=== PATIENT | female | born 1965 | race Caucasian/White ===

== ENCOUNTER → 2017-12-21 12:55 | Outpatient (CLI) | payer BC, SELFPAY ==
--- NOTE | 2017-12-21 | DI.MG.S_ITS ---
UNILATERAL RIGHT DIGITAL DIAGNOSTIC MAMMOGRAM 3D/2D SHORT-TERM FOLLOW-UP: 12/21/2017 CLINICAL: Patient returns for a 6 month follow up of the right breast. Comparison is made to exams dated: 06/15/2017 mammogram, 05/30/2017 mammogram, and 03/03/2016 mammogram - [facility]. The tissue of the right breast is extremely dense, which lowers the sensitivity of mammography. There is a stable benign oval equal density asymmetry with an indistinct margin in the right breast at 12 o'clock anterior depth. No other significant masses or calcifications are seen in the breast. IMPRESSION: BENIGN There is no mammographic evidence of malignancy. Return to annual mammogram screening schedule is recommended. This exam was interpreted at Station ID: [id number]. NOTE: For mammograms, a report in lay terms will be sent to the patient. Approximately 15% of breast malignancies will not be visualized mammographically. In the management of a palpable breast mass, a negative mammogram must not discourage biopsy of a clinically suspicious lesion. Electronically Signed By: Sang alvarez/celeste:12/21/2017 13:52:36 letter sent: Normal Exam ACR BI-RADS Category 2: Benign Finding(s) 3342F
== END ==
PROVIDERS: Family Provider Family Medicine; PCP Family Medicine; Visit Provider Family Medicine
DX: R92.8 Other abnormal and inconclusive findings on diagnostic imaging of breast (principal)
CPT/HCPCS: 77065; G0279

== ENCOUNTER → 2019-07-23 11:29 | Outpatient (CLI) | payer BC, SELFPAY ==
--- NOTE | 2019-07-23 | DI.MG.S_ITS ---
BILATERAL DIGITAL SCREENING MAMMOGRAM 3D/2D WITH CAD: 07/23/2019 CLINICAL: Routine screening. Comparison is made to exams dated: 12/21/2017 mammogram, 06/15/2017 mammogram, 05/30/2017 mammogram, and 03/03/2016 mammogram - [facility]. The tissue of both breasts is heterogeneously dense. This may lower the sensitivity of mammography. Current study was also evaluated with a Computer Aided Detection (CAD) system. No significant masses, calcifications, or other findings are seen in either breast. There has been no significant interval change. IMPRESSION: NEGATIVE There is no mammographic evidence of malignancy. A 1 year screening mammogram is recommended. This exam was interpreted at Station ID: [id number]. NOTE: For mammograms, a report in lay terms will be sent to the patient. Approximately 15% of breast malignancies will not be visualized mammographically. In the management of a palpable breast mass, a negative mammogram must not discourage biopsy of a clinically suspicious lesion. Electronically Signed By: Raymond rtejo/celeste:07/23/2019 16:59:43 letter sent: Normal Exam ACR BI-RADS Category 1: Negative 3341F
== END ==
PROVIDERS: Visit Provider Internal Medicine
DX: Z12.31 Encounter for screening mammogram for malignant neoplasm of breast (principal)
CPT/HCPCS: 77063; 77067

== ENCOUNTER → 2020-04-11 13:12 | Outpatient (CLI) | payer BC, SELFPAY | PROVIDERS: PCP Internal Medicine; Referring Provider Internal Medicine; Visit Provider Internal Medicine | DX: M81.0 Age-related osteoporosis without current pathological fracture (principal); Z78.0 Asymptomatic menopausal state; Z90.722 Acquired absence of ovaries, bilateral; Z82.62 Family history of osteoporosis | CPT/HCPCS: 77080 ==

== ENCOUNTER → 2021-12-25 11:23 | Outpatient (CLI) | payer BC, SELFPAY ==
--- NOTE | 2021-12-25 | DI.MG.S_ITS ---
BILATERAL DIGITAL SCREENING MAMMOGRAM 3D/2D WITH CAD: 12/25/2021 CLINICAL: Routine screening. Comparison is made to exams dated: 07/23/2019 mammogram, 05/30/2017 mammogram, 12/21/2017 mammogram, and 06/15/2017 [facility]. The tissue of both breasts is heterogeneously dense. This may lower the sensitivity of mammography. Current study was also evaluated with a Computer Aided Detection (CAD) system. No significant masses, calcifications, or other findings are seen in either breast. There has been no significant interval change. IMPRESSION: NEGATIVE There is no mammographic evidence of malignancy. A 1 year screening mammogram is recommended. Based on the Tyrer Cuzick model (a risk assessment model) the patient's lifetime risk is 12.8% and her 10 year risk is 3.8%. According to the ACR, ACS, and NCCN guidelines, an annual breast MRI exam along with mammogram is recommended if the patient's lifetime risk is 20% or greater. This exam was interpreted at Station ID: [id number]. NOTE: For mammograms, a report in lay terms will be sent to the patient. Approximately 15% of breast malignancies will not be visualized mammographically. In the management of a palpable breast mass, a negative mammogram must not discourage biopsy of a clinically suspicious lesion. Electronically Signed By: Luan Castrejon M.D., jr/celeste:12/25/2021 13:42:46 letter sent: Normal Exam ACR BI-RADS Category 1: Negative 3341F
== END ==
PROVIDERS: PCP Internal Medicine; Referring Provider Internal Medicine; Visit Provider Internal Medicine
DX: Z12.31 Encounter for screening mammogram for malignant neoplasm of breast (principal)
CPT/HCPCS: 77063; 77067

== ENCOUNTER → 2022-03-29 12:59 | Outpatient (CLI) | payer BC, SELFPAY ==
[2022-03-29 16:05] LABS: COVID19 -Nasal RAPID Negative (Negative)
== END ==
PROVIDERS: PCP Internal Medicine; Visit Provider Surgery
DX: Z01.812 Encounter for preprocedural laboratory examination (principal); Z20.822 Contact with and (suspected) exposure to COVID-19
CPT/HCPCS: 87635; C9803

== ENCOUNTER 2022-03-30 11:55 | Day surgery (SDC) | payer BC, SELFPAY ==
[2022-03-30 12:19] VITALS: BP 142/78; PULSE 79; RESP 18; TEMP 36.3; O2SAT 100; BMI 18.8
[2022-03-30] MEDS: LACTATED RINGERS 1,000 ML 200 ML IV (12:28)
--- NOTE | 2022-03-30 13:23 | P.HP_ITS ---
History of Present Illness History of Present Illness Date Patient Seen: 03/30/22 Time Patient Seen: 13:23 Chief complaint: ARC Narrative: The patient presents for colorectal screening. They have never had any previous examination for such. No personal or family history of colon cancer. On further history denies any recent gastrointestinal symptoms. No nausea, vomiting, abdominal pain, loss of appetite, unexplained weight loss, change in bowel habits, diarrhea, constipation, melena, hematochezia, or bright red blood per rectum. Patient History Medical History (Updated 03/30/22 @ 13:24 by Zhen Souza MD) Injury of bladder during surgery Nodule of neck Osteoporosis Surgical History (Updated 03/30/22 @ 13:24 by Zhen Souza MD) H/O exploratory laparotomy H/O: hysterectomy Family & Social History Social History: household members significant other Tobacco & Substance use: Smoking Status Never smoker alcohol intake current alcohol intake frequency 0-2 drinks per day Substance Use Type does not use Meds Home Medications and Allergies Home Medications Medication Instructions Recorded Confirmed Type Osteobiflex 1 cap PO DAILY 10/14/21 10/14/21 History krill oil 500 mg capsule 500 mg PO DAILY 10/14/21 10/14/21 History qfaxwkdlywzv-jmuvdqea-vlyizk 1 tab PO DAILY 10/14/21 10/14/21 History tablet (Multivitamin 50 Plus tablet) vit 1 cap PO DAILY 10/14/21 10/14/21 History C,E,zinc,Sd-xhiua-5-lutein-zeaxanthin 250 mg-2.5 mg-0.5 mg capsule estradiol 10 mcg vaginal tablet See Rx Instructions .Route 10/26/21 Rx (Vagifem) .COMPLEX #24 tabs sodium,potassium,mag sulfates 17.5 See Rx Instructions PO .COMPLEX 03/04/22 Rx gram-3.13 gram-1.6 gram oral soln #354 mL (Suprep Bowel Prep Kit) Allergies Allergy/AdvReac Type Severity Reaction Status Date / Time No Known Allergies Allergy Uncoded 03/30/22 12:16 Exam Vital Signs (past 8 hours): - 03/30/22 12:19 Temperature 97.4 F L Pulse Rate 79 Respiratory Rate 18 Blood Pressure 142/78 H Pulse Oximetry 100 Oxygen Delivery Method Room Air Oxygen Delivery Method Room Air Narrative Exam Narrative: General adult woman alert oriented no acute distress Abdomen soft midline scar Assessment & Plan Assessment and plan (1) Screening for colon cancer: Status: Acute Assessment & Plan narrative: The patient requires colorectal screening and colonoscopy is recommended. Te chnical details were discussed. Risks, benefits, alternatives explained. Risks including but not limited to myocardial infarction, aspiration, bleeding, pain, missed lesion, incomplete examination, need for further radiographic studies, colonic perforation, and need for major abdominal surgery were discussed. All questions were answered to their satisfaction, and they are in agreement with this plan. Time Spent With Patient Critical Care time: I spent a total of [] minutes of critical care time on this patient's care today; this time is exclusive of procedural time.
--- NOTE | 2022-03-30 13:29 | P.OP.COLON_ITS ---
Operative Date/Time/Diagnoses Date of procedure: 03/30/22 Time of procedure: 13:29 Pre-op diagnosis: Screening Post-op diagnosis: same Procedure & Clinicians Study performed: Colonoscopy Same procedure as scheduled: Yes Indications: Screening Surgeon: Zhen Souza Procedure Notes Procedure in detail: Medications: Conscious sedation using 10mg IV midazolam and 300mcg IV of fentanyl The history and physical was performed/updated and the patient is ASA class is 2. The procedure was discussed in detail with the patient. Potential risks complications including infection, bleeding, missed diagnosis, perforation, need for surgery, and were explained. Their questions were answered and informed consent was obtained. Patient was brought to the procedure room and placed standard monitoring equipment. The patient's vital signs were monitored continuously throughout the entire procedure. Prior to starting time-out was performed. The patient was placed in the left lateral recumbent position. Procedural sedation was admini stered. Examination began with a thorough inspection of the perianal area there was no evidence of fissures, fistulae, external hemorrhoids or cutaneous malignancy. The colonoscopy scope was then placed into the anal canal and was advanced to the cecum, which was identified by the ileocecal valve, the appendiceal orifice and the confluence of the taenia. The scope was then slowly withdrawn examining colon thoroughly in all directions, irrigating it of any residual stool. FINDINGS 1. No masses or polyps 2. Sigmoid-diverticulosis 3. Tortuous colon The patient tolerated the procedure well. They will be discharged once criteria are met. The prep was of fair quality. The withdrawl time was 7 minutes. The sedation time was 37 minutes. Specimen(s): none sent Impression: Normal colon Post-procedure Recommendations: Colonoscopy in 10 years and High fiber diet Plan for aftercare: Any further endoscopy should be performed with propofol Disposition: same day surgery
[2022-03-30] MEDS: fentaNYL 100 MCG/2 ML INJ 300 MCG IV (13:53)
[2022-03-30] MEDS: MIDAZOLAM 5 MG/5 ML VIAL 10 MG IV (13:53)
[2022-03-30 14:11] VITALS: BP 112/79; PULSE 75; RESP 18; TEMP 36.6; O2SAT 100
[2022-03-30 14:16] VITALS: BP 122/82; PULSE 73; RESP 16; O2SAT 100
[2022-03-30 14:21] VITALS: BP 114/85; PULSE 76; RESP 16; O2SAT 100
[2022-03-30 14:26] VITALS: BP 113/77; PULSE 72; RESP 16; TEMP 36.3; O2SAT 100
== END 2022-03-30 14:45 | disposition home or self-care (01) ==
PROVIDERS: PCP Internal Medicine; Referring Provider Surgery; Visit Provider Surgery
PROC: 0DJD8ZZ Inspection of Lower Intestinal Tract, Via Natural or Artificial Opening Endoscopic (ICD-10-PCS; CPT 45378; principal; 2022-03-30 13:30)
DX: Z12.11 Encounter for screening for malignant neoplasm of colon (principal); K57.30 Diverticulosis of large intestine without perforation or abscess without bleeding
CPT/HCPCS: 45378; 99152; 99153; J2250; J3010

== ENCOUNTER → 2022-05-06 14:34 | Outpatient (CLI) | payer BC, SELFPAY ==
[2022-05-06 15:23] LABS: Alanine Aminotransferase 26 IU/L (<35); Albumin 4.7 g/dL (3.5-5.0); Albumin Globulin Ratio 1.7 (1.0-2.8); Alkaline Phosphatase 60 U/L (38-126); Aspartate Aminotransferase 31 IU/L (14-36); BUN Creatinine Ratio 22.1 (6-22); Bilirubin Total 0.4 mg/dL (0.2-1.3); Blood Urea Nitrogen 15 mg/dL (7-17); Calcium 8.9 mg/dL (8.4-10.2); Carbon Dioxide 30 mmol/L (22-32); Chloride 104 mmol/L (98-107); Estimated Glomerular Filt Rate > 60 mL/min (>60); Globulin 2.8 g/dL (1.7-4.1); Glucose 102 mg/dL (70-100); HEMOLYSIS < 15 (0-50); Potassium 3.8 mmol/L (3.4-5.1); Sodium 139 mmol/L (137-145); Total Protein 7.5 g/dL (6.3-8.2)
== END ==
PROVIDERS: PCP Internal Medicine; Referring Provider Internal Medicine; Visit Provider Internal Medicine
DX: M81.0 Age-related osteoporosis without current pathological fracture (principal)
CPT/HCPCS: 36415; 80053; 82306

== ENCOUNTER → 2023-03-22 12:40 | Outpatient (CLI) | payer BC, SELFPAY ==
--- NOTE | 2023-03-22 | DI.MG.S_ITS ---
BILATERAL DIGITAL SCREENING MAMMOGRAM 3D/2D WITH CAD: 03/22/2023 CLINICAL: Routine screening. Comparison is made to exams dated: 12/25/2021 mammogram, 07/23/2019 mammogram, and 05/30/2017 mammogram - [facility]. Both breasts are heterogeneously dense, which may obscure small masses (category c / 51-75% glandular tissue). Current study was also evaluated with a Computer Aided Detection (CAD) system. No significant masses, calcifications, or other findings are seen in either breast. There has been no significant interval change. IMPRESSION: NEGATIVE There is no mammographic evidence of malignancy. A 1 year screening mammogram is recommended. Based on the Tyrer Cuzick model (a risk assessment model) the patient's lifetime risk is 12.8% and her 10 year risk is 4.0%. According to the ACR, ACS, and NCCN guidelines, an annual breast MRI exam along with mammogram is recommended if the patient's lifetime risk is 20% or greater. This exam was interpreted at Station ID: [id number]. NOTE: For mammograms, a report in lay terms will be sent to the patient. Approximately 15% of breast malignancies will not be visualized mammographically. In the management of a palpable breast mass, a negative mammogram must not discourage biopsy of a clinically suspicious lesion. Electronically Signed By: Brionna coles/celeste:03/22/2023 15:11:46 letter sent: Normal Exam ACR BI-RADS Category 1: Negative 3341F
== END ==
PROVIDERS: PCP Internal Medicine; Referring Provider Internal Medicine; Visit Provider Internal Medicine
DX: Z12.31 Encounter for screening mammogram for malignant neoplasm of breast (principal)
CPT/HCPCS: 77063; 77067

== ENCOUNTER → 2023-05-04 12:28 | Outpatient (CLI) | payer BC, SELFPAY ==
--- NOTE | 2023-05-04 12:29 | DI.RAD.S_ITS ---
Bone Density Report Name: MONTEZ ARAGON Age: 57 Sex: Female Ethnicity: White Date of : 1965 Indication: postmenopausal osteoporosis; monitoring treatment; Referring Provider: NIKHIL PANG Study: Bone densitometry was performed. Exam Date: May 04, 2023 Accession number: [id number] Bone Density: Region BMD T-score Z-score Classification AP Spine(L1-L4) 0.757 -2.6 -1.5 Osteoporosis Femoral Neck (Left) 0.595 -2.3 -1.2 Osteopenia Total Hip (Left) 0.775 -1.4 -0.7 Osteopenia Femoral Neck (Right) 0.611 -2.1 -1.1 Osteopenia Total Hip (Right) 0.823 -1.0 -0.3 Normal Total Hip Mean 0.799 -1.2 -0.5 Osteopenia World Health Organization criteria for BMD impression classify patients as: Normal (T-score at or above -1.0), Osteopenia (T-score between -1.0 and -2.5), or Osteoporosis (T-score at or below -2.5). 10-year Fracture Risk: FRAX not reported because: Some T-score for Spine Total or Hip Total or Femoral Neck at or below -2.5 Treated for osteoporosis Previous Exams: -- Region Exam Age BMD T-score BMD Change BMD Change Date g/cm2 vs Baseline vs Previous -- AP Spine (L1-L4) 05/04/2023 57 0.757 -2.6 0.028 (3.8%)# 0.028 (3.8%)# 04/11/2020 54 0.729 -2.9 Total Hip(Left) 05/04/2023 57 0.775 -1.4 0.026 (3.4%)# 0.026 (3.4%)# 04/11/2020 54 0.750 -1.6 Total Hip(Right) 05/04/2023 57 0.823 -1.0 0.038 (4.9%)# 0.038 (4.9%)# 04/11/2020 54 0.785 -1.3 -- *Denotes significance at 95% confidence level, LSC for AP Spine = 0.022 g/cm2, LSC for Total Hip = 0.027 g/cm2 # Denotes dissimilar scan types or analysis methods Impression: The patient has osteoporosis, based on the Total Spine T-score. No significant bone loss was observed. Discussion: PATIENT UNDER TREATMENT WITH NO SIGNIFICANT BMD LOSS SINCE LAST EXAM. In an untreated patient, BMD typically declines with age. A lack of decline or gain is usually a sign that treatment is efficacious and fracture risk is reduced. It is important to ask patients whether they are taking their medications and to encourage continued and appropriate compliance with their osteoporosis therapies to reduce fracture risk. It is also important to review their risk factors and encourage appropriate calcium and vitamin D intakes, exercise, fall prevention and other lifestyle measures. Follow-Up: Consider a repeat BMD and Vertebral Fracture Assessment (VFA) exam in 2 years or sooner if medically necessary, to reassess this patient's status. Reported by: FAREED CANDELARIO M.D. on 05/04/2023 1:01:00 PM.
== END ==
PROVIDERS: PCP Internal Medicine; Referring Provider Internal Medicine; Visit Provider Internal Medicine
DX: M81.0 Age-related osteoporosis without current pathological fracture (principal); Z79.83 Long term (current) use of bisphosphonates; Z90.710 Acquired absence of both cervix and uterus
CPT/HCPCS: 77080

== ENCOUNTER → 2023-05-30 09:43 | Outpatient (CLI) | payer BC, SELFPAY ==
[2023-05-30 10:35] LABS: Alanine Aminotransferase 27 IU/L (<35); Albumin 4.4 g/dL (3.5-5.0); Albumin Globulin Ratio 1.7 (1.0-2.8); Alkaline Phosphatase 54 U/L (38-126); Aspartate Aminotransferase 38 IU/L (14-36); BUN Creatinine Ratio 23.4 (6-22); Bilirubin Total 0.5 mg/dL (0.2-1.3); Blood Urea Nitrogen 15 mg/dL (7-17); Calcium 9.6 mg/dL (8.4-10.2); Carbon Dioxide 27 mmol/L (22-32); Chloride 105 mmol/L (98-107); Estimated Glomerular Filt Rate > 60 mL/min (>60); Globulin 2.6 g/dL (1.7-4.1); Glucose 121 mg/dL (70-100); HEMOLYSIS < 15 (0-50); Potassium 4.5 mmol/L (3.4-5.1); Sodium 136 mmol/L (137-145)
== END ==
PROVIDERS: PCP Internal Medicine; Referring Provider Internal Medicine; Visit Provider Internal Medicine
DX: M81.0 Age-related osteoporosis without current pathological fracture (principal)
CPT/HCPCS: 36415; 80053

== ENCOUNTER → 2024-06-12 11:38 | Outpatient (CLI) | payer BC, SELFPAY ==
--- NOTE | 2024-06-12 11:39 | DI.MG.S_ITS ---
BILATERAL DIGITAL SCREENING MAMMOGRAM 3D/2D WITH CAD: 06/12/2024 CLINICAL: Routine screening. Comparison is made to exams dated: 03/22/2023 mammogram, 12/25/2021 mammogram, and 07/23/2019 mammogram - [facility]. The breasts are heterogeneously dense, which may obscure small masses (category c / 51-75% glandular tissue). Current study was also evaluated with a Computer Aided Detection (CAD) system. No significant masses, calcifications, or other findings are seen in either breast. There has been no significant interval change. IMPRESSION: NEGATIVE There is no mammographic evidence of malignancy. A 1 year screening mammogram is recommended. Based on the Tyrer Cuzick model (a risk assessment model) the patient's lifetime risk is 12.7% and her 10 year risk is 4.2%. According to the ACR, ACS, and NCCN guidelines, an annual breast MRI exam along with mammogram is recommended if the patient's lifetime risk is 20% or greater. This exam was interpreted at Station ID: [id number]. NOTE: For mammograms, a report in lay terms will be sent to the patient. Approximately 15% of breast malignancies will not be visualized mammographically. In the management of a palpable breast mass, a negative mammogram must not discourage biopsy of a clinically suspicious lesion. Electronically Signed By: Elijah alva/celeste:06/12/2024 12:08:51 letter sent: Normal Exam ACR BI-RADS Category 1: Negative
[2024-06-12 15:06] LABS: Hematocrit 36.7 % (36-46); Hemoglobin 12.5 g/dL (12.0-16.0); Mean Corpuscular HGB Conc 34.1 % (30-36); Mean Corpuscular Hemoglobin 33.6 PG (26-34); Mean Corpuscular Volume 98.4 fL (80-100); Platelet Count 238 X10^3/uL (150-400); Red Blood Cell Count 3.73 X10^6/uL (4.0-5.2); Red Cell Distribution Width 12.6 % (11.6-14.8); White Blood Cell Count 5.5 X10^3/uL (4.5-11.0)
[2024-06-12 15:42] LABS: Alanine Aminotransferase 32 IU/L (<35); Albumin 4.5 g/dL (3.5-5.0); Albumin Globulin Ratio 1.8 (1.0-2.8); Alkaline Phosphatase 46 U/L (38-126); Aspartate Aminotransferase 37 IU/L (14-36); BUN Creatinine Ratio 17.4 (6-22); Bilirubin Total 0.5 mg/dL (0.2-1.3); Blood Urea Nitrogen 12 mg/dL (7-17); Calcium 9.5 mg/dL (8.4-10.2); Carbon Dioxide 28 mmol/L (22-32); Chloride 101 mmol/L (98-107); Cholesterol 206 mg/dL (140-199); Estimated Glomerular Filt Rate > 60 mL/min (>60); Globulin 2.5 g/dL (1.7-4.1); Glucose 149 mg/dL (70-100); HEMOLYSIS < 15 (0-50); Potassium 3.6 mmol/L (3.4-5.1); Sodium 134 mmol/L (137-145); Triglycerides 52 mg/dL (35-150)
[2024-06-12 16:01] LABS: HDL Cholesterol 118 mg/dL (40-60); LDL Cholesterol Calculated 78 mg/dL (<100)
[2024-06-12 16:09] LABS: TSH w/ Reflex to FT4 2.82 uIU/mL (0.47-4.68)
== END ==
PROVIDERS: PCP Internal Medicine; Referring Provider Internal Medicine; Visit Provider Internal Medicine
DX: Z12.31 Encounter for screening mammogram for malignant neoplasm of breast (principal); Z00.00 Encounter for general adult medical examination without abnormal findings; R63.4 Abnormal weight loss; R92.333 Mammographic heterogeneous density, bilateral breasts; E78.2 Mixed hyperlipidemia; R73.01 Impaired fasting glucose
CPT/HCPCS: 36415; 77063; 77067; 80053; 80061; 83036; 84443; 85027

== ENCOUNTER → 2025-06-19 11:56 | Outpatient (CLI) | payer BC, SELFPAY ==
[2025-06-19 12:38] LABS: Hemoglobin A1C% w Est Avg Glu 4.9 % (4.0-6.0)
[2025-06-19 13:23] LABS: Alanine Aminotransferase 28 IU/L (<35); Albumin 5.1 g/dL (3.5-5.0); Albumin Globulin Ratio 2.1 (1.0-2.8); Alkaline Phosphatase 51 U/L (38-126); Blood Urea Nitrogen 12 mg/dL (7-17); Calcium 9.4 mg/dL (8.4-10.2); Carbon Dioxide 28 mmol/L (22-32); Chloride 102 mmol/L (98-107); Cholesterol 206 mg/dL (140-199); Estimated Glomerular Filt Rate > 60 mL/min (>60); Globulin 2.4 g/dL (1.7-4.1); Glucose 102 mg/dL (70-99); HEMOLYSIS < 15 (0-50); Potassium 3.9 mmol/L (3.4-5.1); Sodium 139 mmol/L (137-145); Total Protein 7.5 g/dL (6.3-8.2); Triglycerides 92 mg/dL (35-150)
[2025-06-19 13:38] LABS: HDL Cholesterol 120 mg/dL (40-60)
[2025-06-20 16:27] LABS: Hep C Virus Ab w/Reflex Quant NEGATIVE s/c (NEGATIVE)
== END ==
PROVIDERS: PCP Internal Medicine; Referring Provider Internal Medicine; Visit Provider Internal Medicine
DX: Z00.00 Encounter for general adult medical examination without abnormal findings (principal); R73.01 Impaired fasting glucose; R79.89 Other specified abnormal findings of blood chemistry; Z20.9 Contact with and (suspected) exposure to unspecified communicable disease
CPT/HCPCS: 36415; 80053; 80061; 83036; 86803